=== PATIENT | male | born 1980 | race African-American/Black ===

== ENCOUNTER 2016-07-18 23:33 | Emergency (ER) | payer SELFPAY ==
[2016-07-19] MEDS ORDERED: LIDOCAINE PATCH 5% TOP STA (00:20)
[2016-07-19] MEDS ORDERED: oxyCOD/ACETAMIN 5 MG/325 MG TABLET PO STA (00:20)
[2016-07-19] MEDS ORDERED: CYCLOBENZAPRINE 10 MG TABLET PO STA (00:20)
[2016-07-19] MEDS ORDERED: CYCLOBENZAPRINE 10 MG TABLET PO ONE (00:42)
[2016-07-19] MEDS ORDERED: oxyCOD/ACETAMIN 5 MG/325 MG TABLET PO ONE (00:42)
[2016-07-19] MEDS ORDERED: LIDOCAINE PATCH 5% TOP ONE (00:43)
== END 2016-07-19 02:35 | disposition home or self-care (01) ==
DX: M54.5 Low back pain (principal); J45.909 Unspecified asthma, uncomplicated
CPT/HCPCS: 72100; 99283; A9270

== ENCOUNTER 2016-10-04 23:04 | Emergency (ER) | payer SELFPAY ==
[2016-10-04] MEDS ORDERED: BENZONATATE 100 MG CAPSULE PO STA (23:23)
[2016-10-04] MEDS ORDERED: PSEUDOEPHEDRINE 30 MG TABLET PO STA (23:23)
[2016-10-04] MEDS ORDERED: DEXAMETHASONE 10 MG/ML VIAL PO STA (23:23)
[2016-10-04] MEDS ORDERED: IPRATROPIUM/ALBUTEROL 3 ML NEB INH STA (23:23)
[2016-10-04] MEDS ORDERED: CHERRY SYRUP 10 ML UDC PO ONE (23:29)
[2016-10-04] MEDS ORDERED: BENZONATATE 100 MG CAPSULE PO ONE (23:29)
[2016-10-04] MEDS ORDERED: DEXAMETHASONE 10 MG/ML VIAL ONE (23:30)
[2016-10-04] MEDS ORDERED: PSEUDOEPHEDRINE 30 MG TABLET PO ONE (23:30)
[2016-10-04] MEDS ORDERED: IPRATROPIUM/ALBUTEROL 3 ML NEB INH ONE (23:35)
--- NOTE | 2016-10-05 00:12 | ED Physician Documentation ---
PD HPI URI - Stated complaint Stated Complaint: COUGH/SORE THROAT - Chief complaint Chief Complaint: Resp - History obtained from History obtained from: Patient - History of Present Illness Timing - onset: How many days ago (5) Timing details: Gradual onset, Still present Associated symptoms: Chills, Nasal congestion, Rhinorrhea, Sore throat, Productive cough Improves by: Medication, MDI/nebulizer Similar symptoms before: Work up / diagnostics, Treatment Recently seen: Not recently seen - Additional information Additional information: Patient is a 36 year old male with a history of asthma and bronchitis who is presenting to the emergency department for sore throat, nasal congestion and cough. patient states that the symptoms in his sinuses have improved but he has a burning in his chest when he coughs. Patient states that he gets bronchitis every year. Review of Systems Constitutional: denies: Fever, Chills, Myalgias Eyes: denies: Discharge, Irritation Ears: denies: Ear pain, Drainage/discharge Nose: reports: Rhinorrhea / runny nose, Congestion, Sinus pressure / pain Throat: reports: Sore throat Respiratory: reports: Cough, Wheezing GI: denies: Nausea, Vomiting : denies: Dysuria, Frequency Skin: denies: Rash, Lesions Musculoskeletal: denies: Neck pain, Back pain, Extremity pain Neurologic: reports: Headache. denies: Generalized weakness, Focal weakness, Numbness, Head injury, LOC Immunocompromised: denies: Immunocompromised PD PAST MEDICAL HISTORY - Past Medical History Past Medical History: Yes Respiratory: Asthma - Past Surgical History Past Surgical History: No - Present Medications Home Medications: Ambulatory Orders Medication Instructions Recorded Confirmed Benzonatate [Tessalon Perle] 100 mg PO TID #15 capsule 10/05/16 Prednisone 60 mg PO DAILY #15 tablet 10/05/16 - Allergies Allergies/Adverse Reactions: Allergies Allergy/AdvReac Type Severity Reaction Status Date / Time Penicillins Allergy Hives Verified 10/04/16 23:09 - Social History Does the pt smoke?: No Smoking Status: Never smoker Does the pt drink ETOH?: No Does the pt have substance abuse?: No - Immunizations Immunizations are current?: Yes - POLST Patient has POLST: No PD ED PE NORMAL - Vitals Vital signs reviewed: Yes - General General: Alert and oriented X 3, No acute distress - HEENT HEENT: Atraumatic, PERRL - Neck Neck: Supple, no meningeal sign - Cardiac Cardiac: RRR, No murmur - Respiratory Respiratory: No respiratory distress, Clear bilaterally - Abdomen Abdomen: Soft, Non tender, Non distended - Derm Derm: Normal color, Warm and dry, No rash - Extremities Extremities: No deformity, No tenderness to palpate, No edema - Neuro Neuro: Alert and oriented X 3, No motor deficit, No sensory deficit, Normal speech - Psych Psych: Normal mood, Normal affect PD ED PE EXPANDED - HEENT HEENT: R TM dull, L TM dull, Nasal congestion, Rhinorrhea, Moist mucous membranes, Pharyngeal erythema. No: Right frontal sinus TTP, Left frontal sinus TTP, Right maxillary sinus TTP, Left maxillary sinus TTP Results - Vitals Vitals: Vital Signs - 24 hr 10/04/16 10/04/16 23:10 23:37 Temperature 37.4 C Heart Rate 87 102 H Respiratory 18 16 Rate Blood Pressure 143/87 H O2 Saturation 97 Oxygen O2 Source Room air PD MEDICAL DECISION MAKING - ED course Complexity details: reviewed old records, reviewed results, re-evaluated patient , considered differential, d/w patient ED course: Patient was seen and examined at bedside. Patient was in no acute distress and vital signs were within normal limits. patient was treated with a nebulizer treatment, steroids and tessalon perle. patient required no further inpatient work up as his symptoms were likely viral in nature. Patient was stable for discharge with outpatient follow up. Departure - Departure Disposition: 01 Home, Self Care Clinical Impression: Upper respiratory tract infection Condition: Good Instructions: ED Bronchitis Asthmatic Follow-Up: primary,care provider [Other] - As Needed Prescriptions: Prednisone 60 mg PO DAILY #15 tablet Benzonatate [Tessalon Perle] 100 mg PO TID #15 capsule Comments: Your symptoms today are likely viral in nature. Bronchitis can be persistent and last for weeks at a time. We will try a course of steroids to help with the inflammation. You should take the tessalon perles as well as over the counter cough and cold remedies. You should make sure you drink plenty of fluid and get plenty of rest. You should follow up with the clinic. You may return to the emergency department if needed for new, worsening or uncontrollable symptoms. Forms: Activity restrictions
[2016-10-05 00:27] VITALS: BP 137/76
== END 2016-10-05 00:28 | disposition home or self-care (01) ==
LOC: ED 23:04
DX: J06.9 Acute upper respiratory infection, unspecified (principal)
CPT/HCPCS: 94640; 99283; A9270; J7620